=== PATIENT | female | born 1960 | race African-American/Black ===

== ENCOUNTER 2017-04-21 19:40 | Emergency (ER) | payer OTHER ==
[2017-04-22 00:32] VITALS: BP 158/88
== END 2017-04-22 00:32 | disposition home or self-care (01) ==
LOC: ED 19:40
DX: L03.012 Cellulitis of left finger (principal); E11.9 Type 2 diabetes mellitus without complications; I10 Essential (primary) hypertension; Z88.8 Allergy status to other drugs, medicaments and biological substances
CPT/HCPCS: J1885